=== PATIENT | female | born 1995 | race Caucasian/White ===

== ENCOUNTER 2024-07-08 20:22 | Emergency (ER) | payer SELFPAY ==
[2024-07-08 20:43] VITALS: BP 129/85; PULSE 92; RESP 18; TEMP 98.6; BMI 27.4
[2024-07-08] MEDS ORDERED: AMOX TR/POT CLAV 875MG/125MG TABLETS (FP) ONE (20:49)
[2024-07-08] MEDS: AMOX TR/POT CLAV 875MG/125MG TABLETS (FP) PO ONE (20:51)
== END 2024-07-08 21:25 | disposition home or self-care (01) ==
LOC: FER 20:22
DX: S01.511A Laceration without foreign body of lip, initial encounter (principal); W55.01XA Bitten by cat, initial encounter
CPT/HCPCS: 99283-25